=== PATIENT | female | born 2000 | race Two or more races ===

== ENCOUNTER → 2021-08-07 | Day surgery (SDC) | payer BC ==
[2021-08-06 10:40] LABS: Basophils # (auto) 0 10 ^3/uL (0-0.2); Basophils % (auto) 0.4 % (0.0-2.0); Eosinophils # (auto) 0.1 10 ^3/uL (0-0.8); Eosinophils % (auto) 2.2 % (0.0-7.0); Hematocrit 39.3 % (36.0-46.0); Hemoglobin 13.6 g/dL (12.2-16.2); Lymphocytes # (auto) 1.9 10 ^3/uL (0.4-5.4); Lymphocytes % (auto) 29.1 % (10.0-50.0); Mean Corpuscular Hemoglobin 30.4 pg (28.0-32.0); Mean Corpuscular Hgb Conc. 34.5 g/dL (32.0-36.0); Monocytes # (auto) 0.5 10 ^3/uL (0-1.3); Monocytes % (auto) 7.9 % (0.0-12.0); Neutrophils # (auto) 3.8 10 ^3/uL (1.6-8.6); Neutrophils % (auto) 60.4 % (37.0-80.0); Nucleated Red Blood Cells % 0.2 %; Red Blood Cells 4.46 10^6/uL (4.0-5.20); Red Cell Distribution Width 12.1 % (11.8-14.3); White Blood Cell 6.4 10^3/uL (4.4-10.8)
[2021-08-06 12:12] LABS: Calcium 8.9 mg/dL (8.5-10.1); Potassium 4.3 mmol/L (3.5-5.1)
[2021-08-06 12:18] LABS: Albumin 3.7 g/dL (3.4-5.0); BUN/Creatinine Ratio 16.4; Bilirubin, Total 0.4 mg/dL (0.2-1.0); Total Protein 7.4 g/dL (6.4-8.2)
[~2021-08-07] VITALS: Ht 154.9 cm; Wt 81.6 kg
[~2021-08-07] MED LIST: LIDOCAINE VISCOUS 2% 15ML UD ONE; fentaNYL CITRATE 100 MCG/2 ML VL ONE
[2021-08-07] MEDS: fentaNYL CITRATE 100 MCG/2 ML VL ONE ×2 (15:15→15:18)
[2021-08-07] MEDS: diphenhdrAMINE HCL 50 MG/1 ML VL ONE ×2 (15:15→15:18)
[2021-08-07] MEDS: MIDAZOLAM HCL 5 MG/ML-1ML VIAL ONE ×3 (15:15→15:21)
[2021-08-07 15:50] VITALS: BP 122/66
== END | disposition home or self-care (01) ==
LOC: GI 13:02
PROVIDERS: ATTEND Internal Medicine Gastroenterology
DX: R10.9 Unspecified abdominal pain (principal); K21.9 Gastro-esophageal reflux disease without esophagitis; K44.9 Diaphragmatic hernia without obstruction or gangrene; K22.10 Ulcer of esophagus without bleeding; K29.50 Unspecified chronic gastritis without bleeding; Z20.822 Contact with and (suspected) exposure to COVID-19
CPT/HCPCS: 36415; 43239; 80053; 81025; 84702; 85025; 88305; 88312; 88313; 88342; J1200; J2250; J3010; J7030; U0003; 99152